=== PATIENT | male | born 1990 | race Caucasian/White ===

== ENCOUNTER → 2017-05-12 | Outpatient (CLI) | payer OTHER ==
--- NOTE | 2017-05-12 14:47 | RADIOLOGY REPORT (SQ) ---
EXAM DESCRIPTION: MRI LUMBAR SPINE WITHOUT COMPLETED DATE/TIME: 05/12/2017 1:59 pm REASON FOR STUDY: LOW BACK PAIN (M54.5) M54.5 LOW BACK PAIN COMPARISON: None. TECHNIQUE: Sagittal and Axial imaging includes T1, T2, STIR and gradient echo sequences. Coronal T2/ HASTE imaging. LIMITATIONS: None. FINDINGS: VISUALIZED UPPER ABDOMEN: Limited evaluation. No acute or suspicious findings suggested. SEGMENTATION: No transitional anatomy. The lowest well-developed disc space is labeled L5-S1. ALIGNMENT: Anatomic. VERTEBRAE: Intact. BONE MARROW: Normal. No marrow replacement or reactive changes. DISC SIGNAL: Normal. No significant abnormal signal or loss of height. POSTERIOR ELEMENTS: Generally intact. No pars defect evident. HARDWARE: None in the spine. CORD AND CONUS: Normal in size and signal intensity. Conus at the appropriate level. SOFT TISSUES: No aortic aneurysm seen. No bulky retroperitoneal adenopathy or mass. No paraspinal mas s or fluid. L1-L2: No significant spinal stenosis or exit foraminal stenosis. L2-L3: No significant spinal stenosis or exit foraminal stenosis. L3-L4: No significant spinal stenosis or exit foraminal stenosis. L4-L5: No significant spinal stenosis or exit foraminal stenosis. L5-S1: A small disc protrusion is identified centrally and to the right of midline without significan t impingement on the thecal sac or exiting nerve root at this level on the right. LOWER THORACIC: Incompletely imaged. No stenosis seen. SACRUM: Visualized upper sacrum intact. OTHER: No other significant findings. IMPRESSION: Small disc protrusion centrally and to the right of midline at the L5-S1 level as noted above. No significant impingement on the thecal sac or exiting nerve root at this level is seen. Ot her findings as noted above TECHNICAL DOCUMENTATION: JOB ID: [id number] [email or web address] All Rights Reserved
== END ==
LOC: RAD 13:10
PROVIDERS: ATTEND Nurse Practitioner
DX: M54.5 Low back pain (principal)
CPT/HCPCS: 72148